=== PATIENT | female | born 1940 | race Caucasian/White ===

== ENCOUNTER 2019-10-18 13:48 | Outpatient (CLI) | payer MEDICARE, SELFPAY ==
--- NOTE | 2019-10-18 14:06 | CT_ITS ---
WS: [id number] CT CHEST TECHNIQUE: Contrast enhanced CT of the chest with coronal and sagittal reformatted images. CLINICAL INFORMATION: LEFT PULMONARY NODULE COMPARISON: November 11, 2018 DLP: 402.[address] scans at [facility] use at least one of these dose optimization techniques: automat ed exposure control; mA and/or kV adjustment per patient size (includes targeted exams where dose is matched to clinical indication); or iterative reconstruction. FINDINGS: Previously described tiny subpleural 3.4 mm pulmonary nodule in the left lower lobe laterally is unch anged. Better seen today are 2 additional hazy groundglass nodules in the left lower lobe medially wh ich also are stable in appearance measuring 5.3 mm and 4.8 mm. A few additional tiny surrounding sate llite nodules. Additional tiny subpleural nodule left lower lobe measuring 3.2 mm. Calcified granulomas right lung. No acute pulmonary infiltrates. Aortic calcification. Coronary calcification. Normal caliber thoracic aorta. Proximal main pulmonary arteries are normal. Aberrant right subclavian artery. Adrenal glands are normal. Small splenule. Small esophageal hiatal hernia. Chronic anterior wedging a t T11. CT/CT chest w con* [id number] IMPRESSION: 1. Several noncalcified pulmonary nodules in the left lower lobe largest measu ring 5.3 mm unchanged since prior examination. Recommend 6 month interval follo w-up. 2. Mild chronic emphysematous changes. No acute pulmonary infiltrates. 3. Incidental aberrant right subclavian artery. 4. Small esophageal hiatal hernia. 5. Vascular calcification including coronary. 6. Anterior wedging at T11.
[2019-10-18 14:55] LABS: Blood Urea Nitrogen 21 mg/dL (8-23)
[2019-10-18] MEDS: iodixanol 320 mg/mL 100mL Btl IV (15:26)
== END 2019-10-18 13:49 | disposition home or self-care (01) ==
PROVIDERS: Family Provider Internal Medicine; PCP Internal Medicine; Visit Provider Internal Medicine
DX: K44.9 Diaphragmatic hernia without obstruction or gangrene (principal); R91.8 Other nonspecific abnormal finding of lung field; Q27.8 Other specified congenital malformations of peripheral vascular system
CPT/HCPCS: 36415; 71260; 82565; 84520

== ENCOUNTER → 2021-04-05 13:30 | Outpatient (BNVA) | payer MEDICARE, SELFPAY | PROVIDERS: Family Provider Internal Medicine; PCP Internal Medicine; Visit Provider Nurse Practitioner Family | DX: R10.11 Right upper quadrant pain (principal); E11.9 Type 2 diabetes mellitus without complications | CPT/HCPCS: 80053; 83036; 83690; 85025 ==

== ENCOUNTER 2021-04-06 09:30 | Outpatient (CLI) | payer MEDICARE, SELFPAY ==
--- NOTE | 2021-04-06 09:30 | US_ITS ---
WS: [id number] RIGHT UPPER QUADRANT ULTRASOUND HISTORY: RUQ pain COMPARISON: 01/23/2017 Liver: 13.6 cm in length. Normal size liver. No bile duct dilatation or mass. Gallbladder: Normally distended gallbladder. Multiple calcifications in the gallbladder. No perichole cystic fluid or gallbladder wall thickening. CBD: 0.3 cm Pancreas: Normal size and echogenicity. Right kidney: 10.4 cm in length. Normal size and echogenicity. No hydronephrosis or mass. Aorta and IVC: Unremarkable abdominal aorta and IVC. No ascites. US/US gall bladder 24020 IMPRESSION: 1. Cholelithiasis without acute cholecystitis. Gallstones are new since 2017. 2. No bile duct dilatation.
== END 2021-04-06 09:31 | disposition home or self-care (01) ==
LOC: RAD 09:33
PROVIDERS: PCP Internal Medicine; Visit Provider Nurse Practitioner Family
DX: R10.11 Right upper quadrant pain (principal); K80.20 Calculus of gallbladder without cholecystitis without obstruction
CPT/HCPCS: 76705

== ENCOUNTER → 2021-08-14 11:00 | Outpatient (BNVA) | payer MEDICARE, SELFPAY | PROVIDERS: PCP Internal Medicine; Visit Provider Surgery | DX: Z20.822 Contact with and (suspected) exposure to COVID-19 (principal); K80.20 Calculus of gallbladder without cholecystitis without obstruction; Z11.52 Encounter for screening for COVID-19 | CPT/HCPCS: 80053; 83690; 85025; 87635 ==

== ENCOUNTER 2021-08-16 07:21 | Day surgery (SDC) | payer MEDICARE, SELFPAY ==
[2021-08-15 15:15] VITALS: BMI 22.7
[2021-08-16] VITALS (11 sets, daily range): BP systolic 158–180; BP diastolic 67–86; PULSE 50–78; RESP 10–20; TEMP 36.2–36.9; O2SAT 97–100
--- NOTE | 2021-08-16 06:45 | W.PM.OPSUD ---
Surgery/Procedure H&P Update DATE OF PROCEDURE: August 16, 2021 DATE H&P PERFORMED: 08/14/21 H&P UPDATE INFORMATION: I have reviewed H&P completed within last 30 days, I have examined patient prior to procedure and No changes to prior documentation PLANNED PROCEDURE: Operation Date: 08/16/21 08:45 Proposed Procedures p Laparoscopic Cholecystectomy 35440 K80.20(Not Applicable) - Christoph Ramsey MD
[2021-08-16 08:04] LABS: Glucose Point of Care 125 mg/dL (70-110)
--- NOTE | 2021-08-16 08:07 | ECG_ITS ---
[facility] Test Date: 2021-08-16 Pat Name: Radha Jackson Department: Room: Gender: Female Makeup Instructor: : 1940 Requested By: Jackie Allen Order Number: [id number] Artis MD: Ervin Padron M.D. Measurements Intervals [place] Rate: 64 P: 64 MA: 154 QRS: 37 QRSD: 89 T: 64 QT: 411 QTc: 425 Interpretive Statements SINUS RHYTHM No previous ECG available for comparison Electronically Signed On 08-16-2021 17:14:59 CDT by Ervin Padron M.D. [id number]
[2021-08-16] MEDS: sodium chloride 0.9% 1,000 ML 30 ML IV (08:09)
--- NOTE | 2021-08-16 08:27 | ANES.PREANE2 ---
Pre-Anesthetic Assessment Pre-Anesthetic Assessment: Height/Weight: Height 1.75 m Weight 69.853 kg Temp Pulse Resp BP Pulse Ox 98.5 F 78 16 175/86 97 08/16/21 07:40 08/16/21 07:40 08/16/21 07:40 08/16/21 07:40 08/16/21 07:40 Preop Diagnosis: cholelithiasis Proposed Procedure: Operation Date: 08/16/21 08:45 Proposed Procedures p Laparoscopic Cholecystectomy 89705 K80.20(Not Applicable) - Christoph Ramsey MD Familial anesthetic complications: None Was Beta Lili taken within 24 hours: N/A Was Clonidine taken within 24 hours: N/A Last intake: Intake Last Liquid Date 08/16/21 Last Liquid Time 00:00 Last Solid Date 08/16/21 Last Solid Time 00:00 Social: Social History: No alcohol and No tobacco Exam: Pre-Anes Outpt Exam: alert, oriented x 3, clear to auscultation bilaterally and regular rate & rhythm Additional Exam Findings (including area of procedure): HR 54 Airway: MP: 2 Dentition: Full Pulmonary: Pulmonary: Asthma CV/HEM: CV/HEM: HTN Comments: echo 2019 --> grade I diastolic dysfunction, EF 65%, mild pulm HTN 33.8 mmg HG Metabolic: Metabolic: DM Anesthetic Plan: ASA status: 2 Anesthesia: General Risk of > 500 ml blood loss (7ml/kg in children): No Meds/Allergies Current Medications: Current Medications Generic Name Dose Route Start Last Admin Trade Name Freq PRN Reason Stop Dose Admin Sodium Chloride 1,000 mls @ 30 ml s/hr 08/16/21 07:30 08/16/21 08:09 Sodium Chloride 0.9% IV 08/17/21 07:29 30 mls/hr .Q24H JULISSA Administration PFSH Anesthesia PFSH: Medical History Diabetes Diet controlled. HTN (hypertension) Social History (Updated 04/24/21 @ 10:12 by Shellie Castellano RN) Chayito/Hindu: Oriental orthodox Agree to transfusion: No (JEHOVAH WITNESS ) Data Anesthesia Other Labs: Laboratory Results - last 48 hr 08/16/21 07:58 POC Glucose 125 H Cardiac Studies: No Data to Display
[2021-08-16] MEDS: levofloxacin-dextrose 5 % 500 MG/100 ML PREMIX 100 MG IV (08:31)
--- NOTE | 2021-08-16 09:54 | SUR.OPER ---
0954 notified family (jad) of surgery progress
[2021-08-16] MEDS: HYDROcodone-acetaminophen 5-325 mg Tablet 1 TAB PO (12:00)
--- NOTE | 2021-08-17 16:10 | PM.OP ---
Operative Report Date of procedure: August 16, 2021 Pre-op Diagnosis: cholelithiasis Post-op Findings: Acute gangrenous cholecystitis Cholelithiasis Procedure Done: Laparoscopic cholecystectomy Specimens removed/disposition: Gallbladder Surgeon: Christoph Ramsey Anesthesia: General Estimated blood loss (mL): 50 Condition: stable Disposition: PACU Procedure: The patient was taken to the operating room and was intubated under general anesthesia. After the antibiotic had been administered, the abdomen was prepped and draped in a sterile manner. Using a #15 blade, a 1 centimeter infraumbilical curvilinear incision was made and using an open Angelica technique the peritoneal cavity was entered. A 10 millimeter port was placed and 15 millimeters of pneumoperitoneum was created. A 10 millimeter, 30 degrees scope was then introduced. Three 5 millimeter ports were placed in the epigastric, midclavicular and the anterior axillary line two fingerbreadths below the costal margin on the right side under the direct visualization. The omentum was adherent to the body of the gallbladder which was taken down using combination of suction wheel of fortune dealer and electrocautery. The gallbladder was acutely inflamed and distended and therefore an aspiration needle was used to decompress the gallbladder. Ratcheted forceps were introduced into the lateral most port and was used to retract the fundus of the gallbladder cephalad and using forceps the infundibulum of the gallbladder was retracted laterally. Using L-hook cautery the thickened peritoneum overlying the Calot's triangle was opened medially and laterally until the cystic duct and the cystic artery were skeletonized. Dissection was carried along the body of the gallbladder and after ensuring critical view of safety, 4 clips applied on the cystic duct and 3 clips applied on the cystic artery and cut leaving, 3 clips on the remaining portion of the duct and 2 clips on the remaining portion of the artery. The rest of the gallbladder was dissected off the liver using L-hook cautery. Dissection of the posterior wall of the gallbladder from the liver was extremely difficult as the wall was gangrenous and there was no clear plane of dissection. Multiple openings were made in the gallbladder with spillage of gallstones sutures retrieved later with the Endo Catch bag. There was no bleeding or bile leakage noted from the gallbladder fossa and the clips appeared to be in place. An EndoCatch bag was introduced to remove the gallbladder. All the ports were removed under direct visualization and there was no bleeding noted from the port sites. The fascia of the umbilicus was closed using [id number] 0 Vicryl sutures and the subcutaneous tissue was approximated using 3-0 Vicryl sutures. The skin at all four ports were closed using 4-0 Monocryl and Dermabond. A total of 10 millimeters of 0.5% Marcaine was infiltrated around the port sites. The patient was stable throughout the procedure, extubated and transferred to recovery room in stable condition.
== END 2021-08-16 12:20 | disposition home or self-care (01) ==
PROVIDERS: PCP Internal Medicine; Visit Provider Surgery
PROC: 0FT44ZZ Resection of Gallbladder, Percutaneous Endoscopic Approach (ICD-10-PCS; CPT 47562; principal; 2021-08-16 08:45)
DX: R10.11 Right upper quadrant pain (principal); K81.0 Acute cholecystitis; K82.A1 Gangrene of gallbladder in cholecystitis; I10 Essential (primary) hypertension; E11.9 Type 2 diabetes mellitus without complications; Z88.2 Allergy status to sulfonamides
CPT/HCPCS: 47562; 36416; 82962; 88304; 93005; 96365; J1100; J1956; J2405; J2704; J2710; J3010; J3490; J7030

== ENCOUNTER → 2022-02-11 14:33 | Outpatient (BNVA) | payer MEDICARE, SELFPAY | PROVIDERS: PCP Internal Medicine; Visit Provider Internal Medicine | DX: R29.898 Other symptoms and signs involving the musculoskeletal system (principal); E11.9 Type 2 diabetes mellitus without complications | CPT/HCPCS: 80053; 82550; 83036; 84443; 85651; 86140 ==

== ENCOUNTER 2022-03-26 06:00 | Outpatient (RCR) | payer MEDICARE, SELFPAY | END 2022-04-11 23:59 | disposition home or self-care (01) | LOC: TPT 06:00 | PROVIDERS: PCP Internal Medicine; Referring Provider Internal Medicine; Visit Provider Internal Medicine | DX: R29.898 Other symptoms and signs involving the musculoskeletal system (principal) | CPT/HCPCS: 97110; 97140; 97162 ==

== ENCOUNTER 2022-04-12 06:00 | Outpatient (RCR) | payer MEDICARE, SELFPAY | END 2022-05-12 23:59 | disposition home or self-care (01) | LOC: TPT 06:00 | PROVIDERS: PCP Internal Medicine; Referring Provider Internal Medicine; Visit Provider Internal Medicine | DX: R29.898 Other symptoms and signs involving the musculoskeletal system (principal) | CPT/HCPCS: 97110 ==

== ENCOUNTER 2022-05-13 06:00 | Outpatient (RCR) | payer MEDICARE, SELFPAY | END 2022-05-14 16:23 | disposition home or self-care (01) | LOC: TPT 06:00 | PROVIDERS: PCP Internal Medicine; Referring Provider Internal Medicine; Visit Provider Internal Medicine | DX: R29.898 Other symptoms and signs involving the musculoskeletal system (principal) | CPT/HCPCS: 97110 ==

== ENCOUNTER 2023-02-28 08:06 | Outpatient (CLI) | payer MEDICARE, SELFPAY ==
--- NOTE | 2023-02-28 08:22 | US_ITS ---
WS: [id number] Complete ABDOMINAL ULTRASOUND HISTORY: LFT'S ABNORMAL COMPARISON: 04/06/2021 and 01/23/2017 Liver: 12.8 cm in length. Normal size liver and echogenicity. No bile duct dilatation or mass. Portal Vein: Normal hepatopetal flow with monophasic waveform. Gallbladder: Cholecystectomy. CBD: 0.5 cm Pancreas: Normal size and echogenicity. Right kidney: 9.6 cm x 5.2 x 4.1 cm. Cortex:1.2 cm. Normal size and echogenicity. No hydronephrosis or mass. Left kidney: 9.9 cm x 5.8 cm x 4.5 cm. Cortex: 1.1 cm. Normal size and echogenicity. No hydronephrosis or mass. Spleen: Normal. Aorta and IVC: Unremarkable abdominal aorta and IVC. US/US abdomen complete* [id number] Impression: 1. Prior cholecystectomy. 2. Otherwise normal. No bile duct dilatation. 3. No hydronephrosis.
== END 2023-02-28 08:07 | disposition home or self-care (01) ==
PROVIDERS: PCP Internal Medicine; Visit Provider Internal Medicine
DX: R79.89 Other specified abnormal findings of blood chemistry (principal)
CPT/HCPCS: 76700

== ENCOUNTER → 2023-10-05 13:45 | Outpatient (BNVA) | payer MEDICARE, SELFPAY | PROVIDERS: PCP Internal Medicine; Visit Provider Registered Nurse Neonatal Intensive Care | DX: R39.9 Unspecified symptoms and signs involving the genitourinary system (principal); N39.0 Urinary tract infection, site not specified; R31.9 Hematuria, unspecified | CPT/HCPCS: 81000 ==

== ENCOUNTER 2024-02-16 13:05 | Outpatient (CLI) | payer MEDICARE, SELFPAY ==
--- NOTE | 2024-02-16 13:11 | MR_ITS ---
WS: [id number] MRI LUMBAR SPINE NONCONTRAST TECHNIQUE: Sagittal T1, T2 and STIR imaging. Axial T1 and T2 imaging. CLINICAL INFORMATION: LUMBAR SPINAL STENOSIS W/NEUROGENIC CLAUDICATION COMPARISON: None. FINDINGS: Mild lumbar curve. No acute compression. Chronic anterior wedging at T11. Grade 1 anterolisthesis L4 on L5 and L5 on S1. L1-L2: Normal. L2-L3: Minimal disc bulging. Mild facet arthropathy. Spinal canal and foramen are patent. L3-L4: Mild disc bulging with moderate to severe central canal stenosis. Impingement of the subarticu lar recess bilaterally. Moderate facet arthropathy. Mild LEFT greater than RIGHT foraminal narrowing. L4-L5: Disc bulging in combination with facet arthropathy and ligamentum flavum hypertrophy results i n moderate central canal stenosis. Impingement of traversing L5 nerve roots bilaterally. Mild RIGHT a nd no significant LEFT foraminal narrowing. L5-S1: Disc bulging impinges the traversing S1 nerve roots bilaterally with mild central canal stenos is. Moderate facet arthropathy. Moderate bilateral foraminal narrowing impinges the exiting L5 nerve roots bilaterally. Visualized pelvic bony structures: Normal. Paravertebral soft tissues: Normal. Mild central canal stenosis of the cervical spine information assurance officer imaging at C3-C5. MR/MR lumbar spine wo con* [id number] IMPRESSION: 1. Moderate to severe central canal stenosis L3-4 and L4-5 with impingement of the subarticular recess bilaterally. 2. Disc bulge L5-S1 impinges the traversing S1 nerve roots bilaterally. 3. Moderate bilateral L5-S1 foraminal narrowing impinges the exiting L5 nerve roots greater than LEFT. 4. Moderate facet arthropathy L3-L4 L4-L5 and L5-S1. 5. Slight grade 1 anterolisthesis L4 on L5 and L5 on S1.
== END 2024-02-16 13:06 | disposition home or self-care (01) ==
LOC: RAD 13:05
PROVIDERS: PCP Internal Medicine; Visit Provider Orthopaedic Surgery
DX: M48.062 Spinal stenosis, lumbar region with neurogenic claudication (principal); M47.816 Spondylosis without myelopathy or radiculopathy, lumbar region; M47.817 Spondylosis without myelopathy or radiculopathy, lumbosacral region
CPT/HCPCS: 72148

== ENCOUNTER 2025-05-18 09:16 | Outpatient (CLI) | payer MEDICARE, SELFPAY ==
[2025-05-18 10:51] LABS: Hematocrit 39.4 % (36-47); Hemoglobin 13.20 g/dL (11.27-16.99); Mean Corpuscular HGB Conc 33.5 g/dL (30-55); Mean Corpuscular Hemoglobin 29.7 pg (27-33); Mean Corpuscular Volume 88.5 fl (85-98); Nucleated Red Blood Cells % 0 %; Platelet Count 271 10^3/cmm (157-399); Red Blood Count 4.45 10^6/uL (3.85-5.65); White Blood Count 8.02 10^3/uL (3.29-11.43)
[2025-05-18 11:11] LABS: Estmated Average Glucose 128; Hemoglobin A1C 6.1 % (4.0-6.0)
[2025-05-18 11:31] LABS: Alanine Aminotransferase 11 U/L (0-33); Albumin Level 4.1 g/dL (3.5-5.2); Alkaline Phosphatase 107 U/L (35-105); Anion Gap 16.1 (5-19); Aspartate Amino Transferase 24 U/L (0-32); Blood Urea Nitrogen 29 mg/dL (8-23); Calcium 9.8 mg/dL (8.5-10.5); Carbon Dioxide 24 mmol/L (22-29); Chloride 99 mmol/L (98-107); Globulin 3.4 g/dL (1.3-4.6); Glucose 119 mg/dL (65-115); Osmolality Calculated 287 mOsm/kg (285-295); Potassium 4.1 mmol/L (3.5-5.1); Sodium 135 mmol/L (136-145); Thyroid Stimulating Hormone 1.59 uIU/mL (0.27-4.20); Total Protein 7.5 g/dL (6.6-8.7)
== END 2025-05-18 09:17 | disposition home or self-care (01) ==
PROVIDERS: PCP Internal Medicine; Visit Provider Internal Medicine
DX: N18.2 Chronic kidney disease, stage 2 (mild) (principal)
CPT/HCPCS: 36415; 80053; 83036; 84443; 85025

== ENCOUNTER → 2025-08-12 09:50 | Outpatient (BNVA) | payer MEDICARE, SELFPAY | PROVIDERS: PCP Internal Medicine; Visit Provider Podiatrist Foot & Ankle Surgery | DX: L60.0 Ingrowing nail (principal); M79.675 Pain in left toe(s) | CPT/HCPCS: 11730; 11750; 99203; A6219; J9999 ==

== ENCOUNTER → 2025-08-24 09:42 | Outpatient (BNVA) | payer MEDICARE, SELFPAY | PROVIDERS: PCP Internal Medicine; Visit Provider Podiatrist Foot & Ankle Surgery | DX: L60.0 Ingrowing nail (principal); M79.675 Pain in left toe(s) | CPT/HCPCS: 99213 ==